=== PATIENT | female | born 1960 | race Caucasian/White ===

== ENCOUNTER 2019-02-27 10:48 | Emergency (ER) | payer OTHER ==
[2019-02-27 11:01] VITALS: BP 149/97
--- NOTE | 2019-02-27 11:26 | UC ---
Shoulder Pain HPI - HPI Summary HPI Summary: 58-year-old woman coming in with chief complaint of left shoulder pain. Yesterday she was reaching up over her head and pulling an item and had sudden onset of pain in the left posterior shoulder. Pain radiates into the left neck and down the left arm. Anytime she tries to hold anything or carry anything in the left arm increases the pain. Minimal decrease in range of motion of the left shoulder. She does have a chronic neck injury. Patient reports the pain started in the left shoulder. She did take some ibuprofen with minimal relief. - History of Current Complaint Chief Complaint: UCUpperExtremity Stated Complaint: L SHOULDER INJURY Time Seen by Provider: 02/27/19 11:09 Pain Intensity: 8 - Allergies/Home Medications Allergies/Adverse Reactions: Allergies Allergy/AdvReac Type Severity Reaction Status Date / Time No Known Allergies Allergy Verified 02/27/19 11:02 Home Medications: Home Medications Ibuprofen TAB* [Motrin TAB* 600 MG] 600 mg PO Q6HR PRN 02/27/19 [History Confirmed 02/27/19] PMH/Surg Hx/FS Hx/Imm Hx Previously Healthy: Yes - Surgical History Surgical History: None Surgery Procedure, Year, and Place: HERNIATED DISC NECK-FUSED DISC 1996. UTERINE ABLASION 2004 - Family History Known Family History: Positive: Non-Contributory - Social History Alcohol Use: Weekly Substance Use Type: None Smoking Status (MU): Never Smoked Tobacco Review of Systems All Other Systems Reviewed And Are Negative: Yes Constitutional: Positive: Negative Skin: Positive: Negative Eyes: Positive: Negative ENT: Positive: Negative Respiratory: Positive: Negative Cardiovascular: Positive: Negative Gastrointestinal: Positive: Negative Motor: Positive: Other - SEE HPI Neurovascular: Positive: Negative Musculoskeletal: Positive: Other: - SEE HPI Neurological: Positive: Other - SEE HPI Psychological: Positive: Negative Is Patient Immunocompromised?: No Physical Exam Triage Information Reviewed: Yes Appearance: Well-Appearing, Well-Nourished, Pain Distress - MILD WITH ROM Vital Signs: Initial Vital Signs Temp 98.9 F 02/27/19 10:57 Pulse 78 02/27/19 10:57 Resp 12 02/27/19 10:57 BP 149/97 02/27/19 10:57 Pulse Ox 98 02/27/19 10:57 Vital Signs Reviewed: Yes Eye Exam: Normal Eyes: Positive: Conjunctiva Clear Neck: Positive: Supple, Other: - Tender to palpation the left side of the neck going down the left shoulder. Respiratory: Positive: Lungs clear, Normal breath sounds, No respiratory distress Musculoskeletal: Positive: Other: - Normal bilateral radial pulses. Normal capillary refill in both arms. No sensation deficit and arms. Fingers wrist elbows have full range of motion full-strength. Extension is 160 bilateral shoulders. Abduction is 140 bilateral shoulders. Internal rotation on the right is T8 and on the left it is T12. Patient is tender to palpation in the posterior aspect of the left shoulder. Neurological: Positive: Alert Psychological: Positive: Age Appropriate Behavior Skin Exam: Normal Shoulder Course/Dx - Course Course Of Treatment: Director Of Materials: Dheeraj Sapp C ([id number]) [employer] Setter: FABRICIO (FABRICIO) Report Date: 02/27/2019 11:09:00 Report Status: Final Start of Report Content ===== Patient Name: LEXIE SCHWAB Medical Record#: [id number] Ordering Physician: Hari Blackmon MD Acct.#: [id number] : 1960 Age: 58 Sex : F Location: [facility] Exam Date: 02/27/19 1109 ADM Status: REG ER Order Information: SHOULDER LEFT 2+ VWS Accession Number: [id number] CPT : 04507 Indication: LEFT shoulder pain following pulling injury. Previous rotator cuff injury. Comparison: No relevant prior exams available on the [facility] PACS for comparison. Technique: Internal rotation AP, external rotation Grashey , scapular Y, axillary views LEFT shoulder REPORT AND IMPRESSION: #. No cortical disruption or suspicious trabecular irregularity to suggest fracture. # . Normal acromioclavicular and glenohumeral joint alignment. #. Advanced acromioclavicular joint osteoarthritis. #. Sclerotic and cystic change at the greater tuberosity typically seen in setting of chronic rotator cuff pathology. #. Negative for calcific tendinopathy or abnormal soft tissue contour. 02/27/19 114 Dictated By: Dheeraj Sapp MD Dictated Date/Time: 02/27/19 114 Transcribed Date/Time: 114 Copy to: CC:Leeanna Pickett MD; Hari Blackmon MD Imaging - [facility] Imaging - [facility] - [facility] [address] [facility] [id number] [place] [id number] ph ([phone]) ph ([phone]) ph ([phone]) End of Report Content === I discussed the x-rays with the patient. Plan is ice anti-inflammatories. Patient requested something stronger for pain and I wrote a prescription for hydrocodone. Also gave her a sling here in clinic. Sling was placed by nursing patient neurovascular intact after placement sling. We discussed range of motion exercises for the shoulder to avoid frozen shoulder. I let her know she needs to take her arm out of the sling multiple times a day to avoid frozen shoulder. Follow-up with orthopedics. - Differential Dx/Diagnosis Provider Diagnosis: Left shoulder pain Discharge ED - Sign-Out/Discharge Documenting (check all that apply): Patient Departure All imaging exams completed and their final reports reviewed: No Studies - Discharge Plan Condition: Stable Disposition: HOME Patient Education Materials: Shoulder Pain (ED), Rotator Cuff Injury (ED) Referrals: Leeanna Pickett MD [Primary Care Provider] - Anjel Robins MD [Medical Doctor] - Additional Instructions: FOLLOW UP WITH ORTHOPEDICS. GET RECHECKED SOONER IF YOUR CONDITION WORSENS OR ANY QUESTIONS OR CONCERNS. - Billing Disposition and Condition Condition: STABLE Disposition: Home
== END 2019-02-27 12:14 | disposition home or self-care (01) ==
LOC: UCEAST 10:48
DX: M25.512 Pain in left shoulder (principal)
CPT/HCPCS: 99213; G0463

== ENCOUNTER 2020-12-19 08:45 | Inpatient (IN) ==
[~2020-12-19 08:45] MED LIST: Buffered Lidocaine 1% SYRIN 1 ml INTRADERM ONE; Famotidine IV 10 MG/ML 2 ml VIAL (20 mg) IV ONE; Lactated Ringers 1000 ml BAG 1,000 ML IV SCH; Lidocaine 2% PF 5 ML VIAL ONE; Midazolam 2 mg/2 ml VIAL 1 mg/ml 2 ml VIAL (2 mg) ONE; Propofol 10 MG/ML 20 ML BTL ONE; Rocuronium 50 mg VIAL 10 mg/ml 5 ml VIAL (50 mg) ONE; fentaNYL 250 mcg/5 ml 50 MCG/ML 5 ml VIAL (250 MCG) ONE
[2020-12-19] MEDS ORDERED: Clindamycin 900 MG/D5W BAG 900 MG/50 ML BAG IVPB ONE (09:00)
[2020-12-19] MEDS ORDERED: Heparin 5000 UNITS/ML 1 mL VIAL ONE (09:00)
[2020-12-19] MEDS ORDERED: Famotidine IV 10 MG/ML 2 ml VIAL (20 mg) ONE (09:01)
[2020-12-19] MEDS ORDERED: Methylene Blue 0.5 % 50 MG/10 ML AMP IV ONE (09:40)
[2020-12-19] MEDS ORDERED: Bupivacaine 0.25% EPI 200,000 30 ML SDV ONE (09:40)
[2020-12-19] MEDS ORDERED: Dexamethasone IV 4 MG/ML VIAL 1 ml VIAL ONE (10:42)
[2020-12-19] MEDS ORDERED: Ondansetron 4 mg VIAL 2 MG/ML 2 ml VIAL ONE ×2 (10:42→14:09)
[2020-12-19] MEDS ORDERED: Rocuronium 50 mg VIAL 10 mg/ml 5 ml VIAL (50 mg) ONE (10:44)
[2020-12-19] MEDS ORDERED: Propofol 10 MG/ML 20 ML BTL ONE ×2 (10:46→11:51)
[2020-12-19] MEDS ORDERED: Naloxone 0.4 mg VIAL 0.4 mg/ml 1 ml VIAL IV PRN (11:31)
[2020-12-19] MEDS ORDERED: DiMENhydriNATE IV 50 mg/ml 1 ml VIAL IV PUSH PRN (11:31)
[2020-12-19] MEDS ORDERED: Ondansetron 4 mg VIAL 2 MG/ML 2 ml VIAL IV PRN (11:31)
[2020-12-19] MEDS ORDERED: Levalbuterol 0.63MG/3ML NEB UNIT OF USE INH PRN (11:31)
[2020-12-19] MEDS ORDERED: HYDROmorphone 1 MG/1 ML SYRINGE ONE (11:43)
[2020-12-19] MEDS ORDERED: DiMENhydriNATE IV 50 mg/ml 1 ml VIAL ONE ×2 (11:51→15:10)
[2020-12-19] MEDS ORDERED: Acetaminophen IV 1 GM/100ML 100 ML IV ONE (12:07)
[2020-12-19] MEDS ORDERED: Propofol 10 mg/ml 100 ML BTL 100 ML ONE (12:29)
[2020-12-19] MEDS ORDERED: HYDROmorphone 0.5 MG/0.5 ML SYRINGE IV SLOW PU PRN (13:51)
[2020-12-19] MEDS ORDERED: Albuterol/Ipratropium NEB.SOL (2.5/0.5 MG) 3 ML NEB.SOLN INH PRN (13:54)
[2020-12-19] MEDS ORDERED: fentaNYL 100 mcg/2 ml 50 MCG/ML VIAL ONE (14:09)
[2020-12-19] MEDS: fentaNYL 100 mcg/2 ml 50 MCG/ML VIAL IV PRN ×2 (14:11→14:16)
[2020-12-19] MEDS: Lactated Ringers 1000 ml BAG 1,000 ML IV SCH ×2 (15:41→22:34)
[2020-12-19] MEDS ORDERED: Metoclopramide 5 MG/ML VIAL (10 mg) ONE (16:00)
[2020-12-19] MEDS ORDERED: Metoclopramide 5 MG/ML VIAL (10 mg) IV SLOW PU ONE (16:30)
[2020-12-19] MEDS: Ondansetron 4 mg VIAL 2 MG/ML 2 ml VIAL IV PRN (22:40)
[2020-12-20] MEDS: Lactated Ringers 1000 ml BAG 1,000 ML IV SCH (05:25)
[2020-12-20] MEDS: Ondansetron 4 mg VIAL 2 MG/ML 2 ml VIAL IV PRN (08:12)
[2020-12-20] MEDS ORDERED: Acetaminophen IV 1 GM/100ML 100 ML IV ONE (11:00)
[2020-12-20] MEDS ORDERED: Metoclopramide 5 MG/ML VIAL (10 mg) IV PRN (11:00)
[2020-12-20] MEDS: D5W 1/2 NS KCl 20 meq 1000 ml 1,000 ML IV SCH ×2 (13:48→21:59)
[2020-12-20] MEDS: HYDROcodone/ACET. 7.5/325 LIQ 15 ML UDC PO PRN (19:42)
[2020-12-21] MEDS: HYDROcodone/ACET. 7.5/325 LIQ 15 ML UDC PO PRN (03:47)
[2020-12-21] MEDS: D5W 1/2 NS KCl 20 meq 1000 ml 1,000 ML IV SCH (07:49)
[2020-12-21 11:24] VITALS: BP 127/79
[2020-12-23] MEDS ORDERED: Scopolamine PATCH Remove NOTE PATCH OFF SCH (14:00)
== END 2020-12-21 12:53 | disposition home or self-care (01) | DRG 621 ==
LOC: AA 08:45 → SSU 15:52
PROVIDERS: ADMIT Surgery; ATTEND Surgery

== ENCOUNTER 2024-07-05 18:04 | Observation (INO) ==
[2024-07-05] MEDS: Ondansetron ODT 4 mg TAB 4 MG TAB SL ONE (19:01)
[2024-07-05] MEDS: HYDROcodone/ACETAMIN 5/325 mg TAB PO ONE (19:01)
[2024-07-05 19:43] LABS: ABS Lymphocytes 0.8 10^3/uL (1.0-4.8); ABS Monocytes 0.3 10^3/uL (0.0-0.9); ABS Neutrophils 8.7 10^3/uL (1.5-7.6); Eosinophil % 0.5 %; Hematocrit 40.8 % (35-45); Hemoglobin 13.7 g/dL (11.5-14.3); Lymphocyte % 7.8 %; Mean Corpuscular Hemoglobin 29.4 pg (27-33); Mean Corpuscular Hgb Conc 33.7 g/dL (31-36); Mean Corpuscular Volume 87.4 fL (80-97); Mean Platelet Volume 8.2 fL (7.5-11.2); Platelet Count 250 10^3/uL (150-450); Red Blood Count 4.67 10^6/uL (3.63-4.92); Red Cell Distribution Width 13.1 % (12-17); White Blood Count 9.8 10^3/uL (3.8-11.8)
[2024-07-05] MEDS: Lactated Ringers 1000 ml BAG 1,000 ML IV ONE (19:54)
[2024-07-05 20:05] LABS: Urine Appearance Clear; Urine Bilirubin Negative (Negative); Urine Blood 3+ (Negative); Urine Color Light-Yellow; Urine Glucose Negative (Negative); Urine Ketones 2+ (Negative); Urine Nitrite 1+ (Negative); Urine Protein Trace (Negative); Urine Specific Gravity 1.017 (1.002-1.030); Urine Urobilinogen Negative (Negative)
[2024-07-05 20:20] LABS: Urine Bacteria 1+ /HPF (Absent); Urine Red Blood Cell 3+(>10/hpf) /HPF (0-Trace); Urine Squamous Epithelial Cell Present /HPF (Absent); Urine White Blood Cell 3+(>20/hpf) /HPF (0-Trace)
[2024-07-05 20:32] LABS: Albumin 4.4 g/dL (3.5-5.7); C Reactive Protein 1.57 mg/L (<8.01); Calcium 9.5 mg/dL (8.6-10.3); Creatinine, Serum 0.96 mg/dL (0.51-0.95); Globulin 2.2 g/dL (2-4); Potassium 3.9 mmol/L (3.5-5.0); Total Protein 6.6 g/dL (6.4-8.9); eGFR CKD-EPI 66.9 (>60)
[2024-07-05] MEDS: Acetaminophen IV 1 GM/100ML 1,000 MG/100 ML BAG IV ONE (20:32)
[2024-07-05] MEDS: Ondansetron 4 mg VIAL 2 MG/ML 2 ml VIAL IV ONE (21:35)
[2024-07-05] MEDS: Iohexol 350 (CONTRAST) 500 ML MDV IV ONE (21:57)
[2024-07-05] MEDS: cefTRIAXone 1 gm/50 mL D5W 1 GM/50 ML BAG IV ONE (22:40)
[2024-07-06] MEDS ORDERED: Morphine 2 MG/ML SYRINGE IV PRN (00:59)
[2024-07-06] MEDS: Lactated Ringers 1000 ml BAG 1,000 ML IV SCH ×2 (01:34→15:50)
[2024-07-06] MEDS: Ondansetron 4 mg VIAL 2 MG/ML 2 ml VIAL IV PRN (03:44)
[2024-07-06 06:47] LABS: Albumin 3.2 g/dL (3.5-5.7); Calcium 7.8 mg/dL (8.6-10.3); Creatinine, Serum 1.27 mg/dL (0.51-0.95); Globulin 1.6 g/dL (2-4); Potassium 3.4 mmol/L (3.5-5.0); Total Bilirubin 1.4 mg/dL (0.2-1.0); Total Protein 4.8 g/dL (6.4-8.9); eGFR CKD-EPI 47.8 (>60)
[2024-07-06] MEDS ORDERED: Senna TAB 8.6 mg TAB PO PRN (10:54)
[2024-07-06] MEDS: Potassium Chlor 20 meq TAB.ER PO ONE (10:57)
[2024-07-06] MEDS ORDERED: Midazolam 2 mg/2 ml VIAL 1 mg/ml 2 ml VIAL (2 mg) ONE (11:00)
[2024-07-06] MEDS ORDERED: fentaNYL 100 mcg/2 ml 50 MCG/ML VIAL ONE (11:00)
[2024-07-06] MEDS ORDERED: Rocuronium 50 mg VIAL 10 mg/ml 5 ml VIAL (50 mg) ONE (11:01)
[2024-07-06] MEDS ORDERED: Propofol 10 MG/ML 20 ML BTL ONE (11:01)
[2024-07-06] MEDS ORDERED: Lidocaine 2% PF 5 ML VIAL ONE (11:01)
[2024-07-06] MEDS ORDERED: Dexamethasone IV 4 MG/ML VIAL 1 ml VIAL ONE (11:01)
[2024-07-06] MEDS ORDERED: Ondansetron 4 mg VIAL 2 MG/ML 2 ml VIAL ONE (11:01)
[2024-07-06] MEDS ORDERED: Iohexol 180 (CONTRAST) 10 ML SDV IV ONE (12:04)
[2024-07-06] MEDS ORDERED: Naloxone 0.4 mg VIAL 0.4 mg/ml 1 ml VIAL IV PRN ×2 (12:15→16:04)
[2024-07-06] MEDS ORDERED: Ondansetron 4 mg VIAL 2 MG/ML 2 ml VIAL IV PRN ×2 (12:15→16:04)
[2024-07-06] MEDS ORDERED: fentaNYL 100 mcg/2 ml 50 MCG/ML VIAL IV PRN ×2 (12:15→16:04)
[2024-07-06] MEDS ORDERED: Metoclopramide 5 MG/ML VIAL (10 mg) IV PRN ×2 (12:15→16:04)
[2024-07-06] MEDS ORDERED: Scopolamine 1 mg/72hr PATCH ONE (12:22)
[2024-07-06] MEDS: Scopolamine 1 mg/72hr PATCH TRANSDERM ONE (12:24)
[2024-07-06] MEDS ORDERED: NS 0.45% 1000 ml BAG 1,000 ML IV SCH ×2 (13:00→16:00)
[2024-07-06] MEDS ORDERED: Phenylephrine IV 10 MG/ML 1 ml VIAL ONE (13:02)
[2024-07-06] MEDS: Acetaminophen IV 1 GM/100ML 1,000 MG/100 ML BAG IV ONE (15:49)
[2024-07-06] MEDS: Buffered Lidocaine 1% SYRIN 1 ml INTRADERM ONE (15:49)
[2024-07-06] MEDS: cefTRIAXone 1 gm/50 mL D5W 1 GM/50 ML BAG IV SCH (22:36)
[2024-07-07 09:12] LABS: Calcium 8.4 mg/dL (8.6-10.3); Creatinine, Serum 1.17 mg/dL (0.51-0.95); Potassium 4.4 mmol/L (3.5-5.0); eGFR CKD-EPI 52.8 (>60)
[2024-07-07 13:37] VITALS: BP 142/78
== END 2024-07-07 12:35 | disposition home or self-care (01) ==
LOC: ED 18:04 → EDHOLD 18:04 → SUATTDRO 07-06 00:53 → MED 07-06 01:43 → UNDODISOB 07-06 15:18
PROVIDERS: ADMIT Internal Medicine; ATTEND Student in an Organized Health Care Education/Training Program